=== PATIENT | female | born 1995 | race Caucasian/White ===

== ENCOUNTER 2017-05-09 23:27 | Emergency (ER) | payer OTHER ==
[~2017-05-09] VITALS: Ht 170.2 cm; Wt 65.6 kg
[2017-05-09 23:32] VITALS: BP 146/103; PULSE 86; TEMP 36.9; O2SAT 96; Ht 170.2 cm; Wt 65.6 kg
[2017-05-10] MEDS ORDERED: BCPILLS PO (00:22)
--- NOTE | 2017-05-10 05:56 | EMERGENCY ROOM VISIT NOTE ---
ED Visit Note First contact with patient: 23:46 CHIEF COMPLAINT: Hand abrasion HISTORY OF PRESENT ILLNESS: This 22-year-old patient presents to the emergency department after cutting the left palm on a piece of glass while at work. This is a work-related injury. The bleeding has stopped. Denies weakness or numbness of the extremity. patient has full range of motion of the extremity The patient rates the pain as mild and 2/10. The patient denies any other injuries. The patient's tetanus shot is up to date. Patient states she was to make sure there is no foreign body. REVIEW OF SYSTEMS: A 6 system review of systems was completed with positives and pertinent negatives listed in the HPI. ALLERGIES: none MEDICATIONS: none PMH: none SOCIAL HISTORY: No drug use PHYSICAL EXAM: Vital Signs: Reviewed Nurse's notes, vital signs stable. GENERAL : Pleasant female, in no acute distress, well developed, well nourished. SKIN: There is a 1 cm superficial abrasion to the palmar aspect of the left hand that does not gape apart with traction. There is no foreign material in the wound and it looks clean. There is no bleeding. No deep structures such as tendons, bones, or significant blood vessels are seen in the base of the wound. Extension and flexion of the extremity is full and strong. Full range of motion of the extremity. Capillary refill less than 2 seconds. Normal sensation to light and sharp touch. EMERGENCY DEPARTMENT COURSE: I examined the patient. The wound was cleansed and dressed with bacitracin ointment and bandage. Patient was counseled on signs and symptoms of infection verbalized understanding of this. No foreign bodies were visualized. The patient was discharged home in good condition. DIAGNOSIS: Left hand abrasion, work related injury DISCHARGE INSTRUCTIONS & TREATMENT: As below Current/Historical Medications Scheduled Control Pills ( Control Pills), 1 TAB PO DAILY Allergies Coded Allergies: No Known Allergies (Unverified , 05/10/17) Vital Signs Date Time Temp Pulse Resp B/P (MAP) Pulse Ox O2 Delivery O2 Flow Rate FiO2 05/09/17 23:32 36.9 86 20 146/103 96 Room Air Departure Information Impression Primary Impression: Work related injury Additional Impression: Abrasion of left hand Dispostion Home / Self-Care Condition GOOD Forms HOME CARE DOCUMENTATION FORM, IMPORTANT VISIT INFORMATION Patient Instructions [facility], ED Abrasion Additional Instructions Antibiotic ointment and bandage to the areas until healed. Follow up with family doctor or return for any signs of infection (increasing redness, swelling , drainage, or fever). Keep covered when in sun until fully healed then SPF 50 or higher until scar healed. Problem Qualifiers
== END 2017-05-10 00:28 | disposition home or self-care (01) ==
LOC: C.EDB 23:28 → C.EDC 05-10 00:28
DX: S61.412A Laceration without foreign body of left hand, initial encounter (principal); W25.XXXA Contact with sharp glass, initial encounter; Z79.3 Long term (current) use of hormonal contraceptives